=== PATIENT | female | born 1965 | race Caucasian/White ===

== ENCOUNTER → 2023-12-15 11:17 | Outpatient (REF) | payer SELFPAY | LOC: HWRAD 11:17 | PROVIDERS: ATTENDING PHYSICIAN Nurse Practitioner | DX: E78.2 Mixed hyperlipidemia (principal) | CPT/HCPCS: 75571 ==

== ENCOUNTER 2024-03-28 06:09 | Day surgery (SDC) | payer OTHER, SELFPAY ==
[2024-03-20 13:08] VITALS: BMI 30.5
[2024-03-28] VITALS (8 sets, daily range): BP systolic 118–143; BP diastolic 82–92; BMI 30.5
[2024-03-28] MEDS: CELEBREX 200 MG PO (11:11)
[2024-03-28] MEDS: TYLENOL 1000 MG PO (11:11)
[2024-03-28] MEDS: NORMOSOL-R/PLASMALYTE-A 1000 IV (11:22)
== END 2024-03-28 16:50 | disposition home or self-care (01) ==
LOC: SDS 06:09
PROVIDERS: ATTENDING PHYSICIAN Orthopaedic Surgery; FAMILY PHYSICIAN Internal Medicine
DX: S46.011A Strain of muscle(s) and tendon(s) of the rotator cuff of right shoulder, initial encounter (principal); S46.211A Strain of muscle, fascia and tendon of other parts of biceps, right arm, initial encounter; X58.XXXA Exposure to other specified factors, initial encounter
CPT/HCPCS: 29827; 29828; 36415; 93005; C1713

== ENCOUNTER → 2024-07-19 11:03 | Outpatient (REF) | payer OTHER, SELFPAY | LOC: MRI 3T 11:03 | PROVIDERS: ATTENDING PHYSICIAN Nurse Practitioner Adult Health | DX: R42 Dizziness and giddiness (principal); Z87.898 Personal history of other specified conditions | CPT/HCPCS: 70553; A9575 ==

== ENCOUNTER → 2025-01-27 11:29 | Outpatient (REF) | payer OTHER, SELFPAY | LOC: RAD 11:29 | PROVIDERS: ATTENDING PHYSICIAN Internal Medicine Gastroenterology | DX: K58.1 Irritable bowel syndrome with constipation (principal) | CPT/HCPCS: 74019 ==